=== PATIENT | male | born 1945 | race Caucasian/White ===

== ENCOUNTER 2017-06-04 14:57 | Inpatient (IN) | payer OTHER ==
[~2017-06-04] VITALS: Ht 188 cm; Wt 83.6 kg
[~2017-06-04 14:57] MED LIST: ADULT LOW DOSE81 M1 PO; B12 5,000 MCG1 EACH SL; D3; FISH OIL SOFTG1 EACH PO; LIPITOR20 MG PO; METOPROLOL SUCC25 MG PO; METOPROLOL SUCC50 MG PO; PRILOSEC20 MG PO; TRICOR145 MG PO; TRICOR48 MG PO; ULORIC40 MG PO; VITAMIN B-121000 MC1 SL; VITAMIN D32000 UNI1 PO
[2017-06-04] MEDS ORDERED: NITROGLYCERIN0.4 MG SL (15:28)
[2017-06-04] MEDS ORDERED: ZANTAC150 MG PO (15:28)
[2017-06-04] MEDS ORDERED: VITAMIN B12-FO1 EACH PO (15:28)
[2017-06-04 15:44] LABS: EOSINOPHIL (%) 1.8 % (0-5); EOSINOPHIL COUNT 0.2 K/uL (0-0.3); HEMATOCRIT 47.4 % (38.0-50.0); IMMATURE GRANULOCYTE (%) 0.5 % (0.0-0.7); INSTRUMENT ABS NEUTROPHIL CT 7.2 K/uL; LYMPHOCYTE COUNT 0.7 K/uL (1.0-2.8); MCH 31.6 PG (29.0-34.0); MCHC 32.9 G/DL (30.0-36.0); MCV 96.1 FL (86-99); MONOCYTE COUNT 0.8 K/uL (0-0.8); NEUTROPHIL (%) 81.2 % (45-76); NEUTROPHIL COUNT 7.2 K/uL (1.8-6.4); PLATELET COUNT 171 K/uL (156-360); RBC DIS.WIDTH-CV 13.8 % (11.8-14.6); RBC DIS.WIDTH-SD 49.3 % (39-53); RED BLOOD COUNT 4.93 M/uL (4.00-5.50); WHITE BLOOD COUNT 8.9 K/uL (4.1-10.2)
[2017-06-04 15:54] LABS: CHLORIDE 108 mEq/L (99-109); POTASSIUM 4.5 mEq/L (3.7-5.4); SODIUM 140 mEq/L (136-147)
[2017-06-04 15:56] LABS: GLUCOSE 103 mg/dL (70-99)
[2017-06-04 15:57] LABS: ANION GAP 11 MEQ/L (2-14)
[2017-06-04 16:00] LABS: GFR ESTIMATE (CALCULATED) > 59 mL/min/
[2017-06-04 16:01] LABS: UREA NITROGEN (BUN) 20 mg/dL (9-23)
[2017-06-04] MEDS ORDERED: COZAAR25 MG PO (20:46)
[2017-06-04] MEDS ORDERED: SALINE NOSE SPR45 M1 BOTH NARES (20:46)
[2017-06-05 02:06] VITALS: BP 142/78
[2017-06-05 07:23] LABS: HEMATOCRIT 45.1 % (38.0-50.0); MCH 31.5 PG (29.0-34.0); MCHC 32.6 G/DL (30.0-36.0); MCV 96.8 FL (86-99); PLATELET COUNT 171 K/uL (156-360); RBC DIS.WIDTH-CV 13.8 % (11.8-14.6); RBC DIS.WIDTH-SD 49.2 % (39-53); RED BLOOD COUNT 4.66 M/uL (4.00-5.50); WHITE BLOOD COUNT 8.6 K/uL (4.1-10.2)
[2017-06-05 07:25] VITALS: BP 161/82
[2017-06-05 07:49] LABS: ALKALINE PHOSPHATASE 99 IU/L (3-129); ANION GAP 9 MEQ/L (2-14); CHLORIDE 105 MEQ/L (99-109); GFR ESTIMATE (CALCULATED) > 59 mL/min/; GLUCOSE 112 mg/dL (70-99); POTASSIUM 4.4 MEQ/L (3.7-5.4); SAMPLE HEMOLYSIS CHECK 0; SAMPLE ICTERIC CHECK 0; SAMPLE LIPEMIA CHECK 0; SODIUM 141 MEQ/L (136-147); TOTAL BILIRUBIN 0.9 MG/DL (0.0-1.0); UREA NITROGEN (BUN) 19 mg/dL (9-23)
== END 2017-06-05 10:42 | disposition home or self-care (01) | DRG 390 ==
LOC: EME 14:57 → 2EAST 23:25 → EDOF 23:25 → ENRESERV 23:26 → 2EAST 06-05 01:28
PROVIDERS: Internal Medicine; Physician Assistant
DX: K56.60 Unspecified intestinal obstruction (principal); I10 Essential (primary) hypertension; K21.9 Gastro-esophageal reflux disease without esophagitis; Z93.2 Ileostomy status; Z90.49 Acquired absence of other specified parts of digestive tract; I25.10 Atherosclerotic heart disease of native coronary artery without angina pectoris; Z95.5 Presence of coronary angioplasty implant and graft; E78.00 Pure hypercholesterolemia, unspecified; M10.9 Gout, unspecified; Z87.442 Personal history of urinary calculi; Z86.73 Personal history of transient ischemic attack (TIA), and cerebral infarction without residual deficits; I25.2 Old myocardial infarction; Z87.891 Personal history of nicotine dependence
CPT/HCPCS: 74000; 74177; 80048; 80053; 85025; 85027; 99281; 99285; J1170; J1644; J2405; J7030; J7050